=== PATIENT | male | born 1955 | race Caucasian/White ===

== ENCOUNTER 2019-05-15 18:26 | Inpatient (IN) | payer OTHER ==
[~2019-05-15] VITALS: Ht 175.3 cm; Wt 70.3 kg
[2019-05-15 18:56] VITALS: Ht 175.3 cm; Wt 70.3 kg
--- NOTE | 2019-05-15 19:35 | NUR ---
REPORT GIVEN TO SALAZAR MENA. OPPORTUNITY GIVEN TO ASK QUESTIONS. PT'S CARE COMPLETED BY THIS RN AT THIS TIME.
[2019-05-15] MEDS ORDERED: BASAGLAR K100 UNIT/1 SQ (19:46)
[2019-05-15] MEDS ORDERED: ENALAPRIL MALE2.5 MG PO (19:47)
[2019-05-15] MEDS ORDERED: NATURE'S BLEND F1 MG PO (19:47)
[2019-05-15 19:50] LABS: BASOPHIL % 0.3 % (0-2)
[2019-05-15] MEDS ORDERED: GLU850 PO (19:50)
[2019-05-15] MEDS ORDERED: HUMALOG100 UNIT/1 SQ (19:50)
[2019-05-15] MEDS ORDERED: LACTULOSE10 GM/152 PO (19:50)
[2019-05-15] MEDS ORDERED: PROTONIX20 MG PO (19:51)
[2019-05-15] MEDS ORDERED: RESTORIL15 MG PO (19:52)
[2019-05-15] MEDS ORDERED: THI100 PO (19:52)
[2019-05-15 19:53] LABS: PLATELET COUNT 125 x10^3mcL (130-400); RED CELL DISTRIBUTION WIDTH 17.5 % (11.5-14.5)
[2019-05-15] MEDS ORDERED: KLOR-CON 1010 MEQ PO (19:53)
[2019-05-15] MEDS ORDERED: XIFAXAN550 M1 PO (19:53)
[2019-05-15] MEDS ORDERED: SIMVASTATIN20 M1 PO (19:54)
[2019-05-15 19:59] LABS: CALCIUM 8.4 mg/dL (8.5-10.1); CARBON DIOXIDE 23.6 mmol/L (21-32); CHLORIDE SERUM 105 mmol/L (98-107); GFR1 > 60 mL/min; GLUCOSE SERUM 165 mg/dL (74-106); POTASSIUM SERUM 4.5 mmol/L (3.5-5.1); SODIUM SERUM 140 mmol/L (136-145)
[2019-05-15 20:05] LABS: ALBUMIN 2.4 g/dL (3.4-5.0); ALKALINE PHOSPHATASE 97 U/L (46-116); ALT/SGPT 20 U/L (16-63); AST/SGOT 16 U/L (15-37); BILIRUBIN TOTAL 6.43 mg/dL (0.20-1.00); MAGNESIUM 1.6 mg/dL (1.8-2.4)
--- NOTE | 2019-05-15 20:14 | NUR ---
PT STILL CONFUSSED AND AT TIMES UNCOOPERATIVE. DAUGHTER AT BEDISDE. VITAL SIGNS STABLE. RESPIRATIONS EVEN AND UNLABORED. NO ACUTE DISTRESS NOTED.
[2019-05-15 20:39] LABS: TOTAL PROTEIN, SERUM 6.3 g/dL (6.4-8.2)
--- NOTE | 2019-05-15 21:42 | NUR ---
REPORT GIVEN TO [facility] ON [facility] FOR CONTINUATION OF CARE.
[2019-05-15 21:53] LABS: CHOLESTEROL/HDL RATIO 2.1
[2019-05-15 22:18] VITALS: BP 81/60
--- NOTE | 2019-05-15 22:22 | NUR ---
RECEIVED PT FROM ED VIA PHANI. ORIENTED PT AND FAMILY TO ROOM AND SURROUNDINGS. IV NOTED TO LAC PATENT NAD INTACT .TELE 8 PLACED ON PT READING NSR. INSTRUCTED PT ON THE USE OF CALL LIGHT FOR ASSISTANCE. ENDORSED PT TO PRIMARY NURSE AGUSTÍN
--- NOTE | 2019-05-15 22:25 | NUR ---
PT RECEIVED FROM RESOURCE NURSE. PT A/O X1, ABLE TO ANSWER YES OR NO QUESTIONS, PT CONFUSED AT THIS TIME. FAMILY AT BEDSIDE. PULSES PALPABLE, NO EDEMA PRESENT. BREATHING IS EVEN AND UNLABORED ON RA, NO RESP DISTRESS NOTED. ABD SOFT AND NONDISTENDED, NO N/V PRESENT. VOIDS FREELY, URINAL AT BEDSIDE. GENERALIZED WEAKNESS, BED ALARM ON. SKIN IS WARM AND DRY, INTACT. PT DENIES HAVING PAIN AT THIS TIME. IV TO LAC, PATENT AND INTACT, SITE WNL. NO ACUTE DISTRESS NOTED. ORIENTED PT TO ROOM AND CALL LIGHT. BED IN LOWEST SETTING, SIDE RAILS UP X3, BED ALARM ON, CALL LIGHT WITHIN REACH. WILL CONT TO MONITOR.
--- NOTE | 2019-05-15 22:40 | NUR ---
AMMONIA-127, LACTULOSE GIVEN ORDERED. PT ALSO C/O NAUSEA, EMESIS BAG PROVIDED, PRN ZOFRAN GIVEN ORDERED. NO ACUTE DISTRESS NOTED. WILL CONT TO MONITOR.
--- NOTE | 2019-05-16 01:27 | NUR ---
CRITICAL LAB: LACTIC ACID-3.2, TRENDING DOWN. DR JEFFERSON MADE AWARE.
--- NOTE | 2019-05-16 01:37 | NUR ---
MAG-1.6, DR JEFFERSON MADE AWARE.
[2019-05-16 05:29] VITALS: BP 123/62
--- NOTE | 2019-05-16 05:45 | NUR ---
DR JEFFERSON MADE AWARE OF DIET ORDER, AWAITING ORDERS AT THIS TIME.
--- NOTE | 2019-05-16 06:23 | NUR ---
PT SLEPT WELL THROUGHOUT THE EVENING. PT REMAINS CONFUSED. BREATHING IS EVEN AND UNLABORED, NO RESP DISTRESS NOTED. PT DENIES HAVING ANY PAIN AT THIS TIME. NO ACUTE CHANGES ENCOUNTERED DURING SHIFT. ALL NEEDS MET AND ANTICIPATED. IVF INFUSING WELL, SITE WNL. BED ALARM ON. CALL LIGHT WITHIN REACH. WILL ENDORSE CARE TO AM NURSE.
[2019-05-16 06:24] LABS: BASOPHIL % 0.4 % (0-2)
[2019-05-16 06:32] LABS: PLATELET COUNT 111 x10^3mcL (130-400); RED CELL DISTRIBUTION WIDTH 17.7 % (11.5-14.5)
[2019-05-16 06:46] LABS: CALCIUM 8.3 mg/dL (8.5-10.1); CARBON DIOXIDE 19.5 mmol/L (21-32); CHLORIDE SERUM 108 mmol/L (98-107); CREATININE SERUM 0.8 mg/dL (0.7-1.3); GFR1 > 60 mL/min; GLUCOSE SERUM 177 mg/dL (74-106); POTASSIUM SERUM 4.2 mmol/L (3.5-5.1); SODIUM SERUM 139 mmol/L (136-145)
--- NOTE | 2019-05-16 07:00 | NUR ---
RECEIVED BEDSIDE REPORT FROM [employer] NURSE AT THIS TIME. PATIENT RESTING COMFORTABLY IN BED. NO APPARENT DISTRESS OR DISCOMFORT NOTED. PATIENT IS A/O X1 (SELF). BREATHING EVEN AND UNLABORED. NO RESPIRATORY DISTRESS OR DISCOMFORT NOTED. PATIENT DENIES SHORTNESS OF BREATH. NO INDICATION OF CHEST PAIN/PRESSURE. IV PATENT AND INTACT AND INFUSING NS @100ML/HR. ALL QUESTIONS AND CONCERNS ADDRESSED. ALL NEEDS ATTENDED TO. WILL CONTINUE TO MONITOR
--- NOTE | 2019-05-16 07:18 | NUR ---
PT IN NO ACUTE DISTRESSED. CONTINUITY OF CARE ENDORSED TO JOSHUA MENA. ALL QUESTIONS AND CONCERNS ADDRESSED.
--- NOTE | 2019-05-16 10:36 | NUR ---
PATIENT RECEIVED MORNING MEDICATIONS. PATIENT TOLERATED MEDICATIONS WELL. NO APPARENT ADVERSE EFFECTS NOTED. ALL NEEDS ATTENDED TO. WILL CONTINUE TO MONITOR
--- NOTE | 2019-05-16 11:29 | NUR ---
DR BASS AT BEDSIDE REVIEWING POC WITH PATIENT AND PATIENT FAMILY AT THIS TIME. ALL QUESTIONS AND CONCERNS ADDRESSED. ALL NEEDS ATTENDED TO. WILL CONTINUE TO MONITOR
--- NOTE | 2019-05-16 13:28 | NUR ---
PATIENT BLOOD SUGAR 184. 3 UNITS OF REGULAR INSULIN REQUIRED (SEE EMAR). ALL NEEDS ATTENDED TO. WILL CONTINUE TO MONITOR
[2019-05-16 13:45] VITALS: BP 116/76
--- NOTE | 2019-05-16 14:00 | NUR ---
PAGED DR BASS TO REPORT PATIENT HAS HAD NO URINE OUTPUT ALL SHIFT. AWAITING CALL BACK AT THIS TIME. WILL CONTINUE TO MONITOR
--- NOTE | 2019-05-16 16:49 | NUR ---
CALLED RESIDENT PHONE AT THIS TIME. SPOKE TO DR DUMONT TO REPORT PATIENT HAS HAD NO URINE OUTPUT THIS SHIFT. PATIENT ON 100ML/HR AND HAS BEEN DRINKING FLUIDS ALL SHIFT. PER DR DUMONT HE WILL NOTIFY DR BASS. ALL NEEDS ATTENDED TO. WILL CONTINUE TO MONITOR
[2019-05-16 17:15] VITALS: BP 90/55
--- NOTE | 2019-05-16 17:58 | NUR ---
PAGED DR CHAUDHARY, WHO IS COVERING FOR DR BASS, TO REPORT PATIENT IS POSITIVE MRSA NARES AT THIS TIME. AWAITING CALL BACK AT THIS TIME.WILL CONTINUE TO MONITOR.
--- NOTE | 2019-05-16 19:05 | NUR ---
REPORT RECEIVED FROM DAY SHIFT RN. PATIENT WAS SEEN AND IS RESTING COMFORTABLY IN BED. NO DISTRESS NOTED. BREATHING EVEN AND UNLABORED. NO SOB OR RESP DISTRESS. DENIES CHEST PAIN/PRESSURE. TELE #8. A/OX1 TO SELF ONLY. SEIZURE PRECAUTIONS IN PLACE. NO C/O PAIN. IV TO THE LAC INFUSING NS WELL AT 100ML/HR. PATENT AND INTACT. NO REDNESS OR SWELLING NOTED. COMFORT AND SAFETY MEASURES IN PLACE. BED IS LOCKED AND IN THE LOWEST POSITION. SIDE RAILS UP X2. CALL LIGHT IS WITHIN REACH. WILL CONTINUE TO MONITOR.
--- NOTE | 2019-05-16 19:15 | NUR ---
NOTIFIED DR JEFFERSON ABOUT (+) MRSA IN THE NARES. AWAITING NEW ORDERS. CONTACT PRECAUTIONS ARE IN PLACE.
--- NOTE | 2019-05-16 19:39 | NUR ---
PATIENT RESTING COMFORTABLY IN BED AT THIS TIME. NO APPARENT DISTRESS OR DISCOMFORT NOTED. IV PATENT AND INTACT. ALL QUESTIONS AND CONCERNS ADDRESSED. ALL NEEDS ATTENDED TO. SAFETY PRECAUTIONS MAINTAINED. ENDORSED ALL CARE TO DRILLING MANAGER NURSE. DR GONZALEZ PATIENT POSITIVE MRSA NARES
[2019-05-16 20:17] VITALS: BP 123/69
--- NOTE | 2019-05-17 00:45 | NUR ---
RESTING IN BED COMFORTABLY. NO DISTRESS NOTED. DENIES PAIN. BREATHING EVEN AND UNLABORED ON ROOM AIR. NO SOB NOTED. IV TO THE LAC INFUSING WELL. PATENT AND INTACT. SAFETY MEASURSES IN PLACE. CALL LIGHT IS WITHIN REACH. WILL CONTINUE TO MONITOR.
--- NOTE | 2019-05-17 06:02 | NUR ---
RESTED IN LONG INTERVALS THROUGHOUT THE NIGHT. NO ACUTE CHANGES NOTED. A/OX1 TO SELF, CONFUSED. NO DISTRESS NOTED. DENIES CHEST PAIN/PRESSURE. NO C/O PAIN THROUGHOUT THE NIGHT. BREATHING EVEN AND UNLABORED ON ROOM AIR. NO SOB OR RESP DISTRESS NOTED. IV TO THE LAC INFUSING WELL. PATENT AND INTACT. NO REDNESS OR SWELLING NOTED. SEIZURE PRECAUTIONS IN PLACE. SAFETY MEASURES IN PLACE. ALL NEEDS AND CONCERNS ADDRESSED. NO BM NOTED ON THE SHIFT. LACTULOSE GIVEN X2. CALL LIGHT IS WITHIN REACH. WILL ENDORSE CARE TO DAY SHIFT RN.
[2019-05-17 06:17] VITALS: BP 123/72
--- NOTE | 2019-05-17 06:30 | NUR ---
TELE MONITOR CALLED REPORTED PATIENT WAS OFF TELE. WENT TO CHECK ON PATIENT. PATIENT REMOVED TELE LEADS AND GOWN. URINE FOUND ON THE FLOOR IN FRONT OF BATHROOM. LEADS REAPPLIED. EDUCATED PATIENT TO NOT REMOVED GOWN AND LEADS. IV TO LAC INTACT. PATENT AND INFUSING WELL. PATIENT CLEANED AND CHANGED BY GABE PIMENTEL. PATIENT IS CONFUSED. SAFETY MEASURES IN PLACE. WILL ENDORSE CARE TO DAY SHIFT RN.
[2019-05-17 06:53] LABS: BASOPHIL % 0.6 % (0-2)
[2019-05-17 07:07] LABS: PLATELET COUNT 99 x10^3mcL (130-400); RED CELL DISTRIBUTION WIDTH 17.4 % (11.5-14.5)
--- NOTE | 2019-05-17 07:35 | NUR ---
RECEIVED PT IN BED. ASSESSED AND DOCUMENTED. DENIES PAIN THIS TIME. SAFTEY PRECAUTIONS ARE IN PLACE. WILL MONITOR.
[2019-05-17 07:42] LABS: CALCIUM 7.6 mg/dL (8.5-10.1); CARBON DIOXIDE 21.6 mmol/L (21-32); CHLORIDE SERUM 110 mmol/L (98-107); CREATININE SERUM 0.8 mg/dL (0.7-1.3); GFR1 > 60 mL/min; GLUCOSE SERUM 135 mg/dL (74-106); MAGNESIUM 1.6 mg/dL (1.8-2.4); PHOSPHOROUS 3.6 mg/dL (2.5-4.9); POTASSIUM SERUM 3.7 mmol/L (3.5-5.1); SODIUM SERUM 142 mmol/L (136-145)
[2019-05-17 10:05] VITALS: BP 131/81
--- NOTE | 2019-05-17 13:30 | NUR ---
PT RESTING IN BED COMFORTABLY. DENIES ANY PAIN. STABLE. PT RESPOSITIONING SELF.
[2019-05-17 13:42] VITALS: BP 130/78
--- NOTE | 2019-05-17 14:09 | NUR ---
Initial Nutrition Assessment: 218T/A [place] ERAZO IA HR Dx: Hepatic encephalopathy PMHx: Alcoholic cirrhosis, DM, Hepatitis C and hepatic encephalopathy PSHx: Hernia Repair, Carpal tunnel release Labs: BG 135H, ammonia 59H, MG 1.6L Meds: Colace, D 50%, folic acid, humulin, Tylenol, vitamin B-1, zofran Diet: [facility] PO Intake: (05/16) breakfast 40%, lunch 50%, Ht: 175.26 cm (69") Wt: 70.3 kg (155#) BMI: 22.9 kg/m2 Bed scale: 70.2 kg IBW: 160# (72.7 kg) %IBW: 96 UBW: unable to access as pt was sleeping Age: 64/M Food Allergies: NKFA Skin: intact Gagan: 17 Edema: none GI: on lactulose Last BM: 05/15 Per H&P, Pt is a 64 YO male with PMH of Alcoholic cirrhosis, DM, Hepatitis C and hepatic encephalopathy brought in to the ED from [facility] for altered mental status, Patient was admitted 3 weeks ago at [facility] for upper GI bleeding and elevated ammonia and was discharged after one week but he wasn't back to his baseline so his daughters decided to place him in [facility]. His condition improved initially in [facility] but then deteriorated 3 days ago, he became more altered and stopped eating and was verbally abusive and combative so his daughters decided to send him to the ED today. RDN Visit (05/16): Patient was sleeping with no family member at bedside. Per RN Amy, pt's PO has improved a little this morning. Patient does not have any N/V/D/C. Patient's last BM was on 05/15/19. Problem with: N/V/D/C: none at this time per RN Problems with: Chewing/Swallowing: none Current appetite: fair Recent wt change: unable to access %wt change: unable to access Vitamin/Supplement use: unable to access Special diet at home: unable to access Physical activity: unable to access Nutrition education given: not possible at this time as patient was sleeping. Will be attempted during a f/u visit. Food-drug interactions: Colace- high fiber w/1560-4384 ml fluids Education given: n/a Estimated Nutritional Needs Based on current body weight 70.3 kg Energy: 5430-7892 kcal/d (25-30 kcal/kg) Protein: 56-70 g/d (0.8-1.0 g/kg) - hepatic encephalopathy Fluid: 0092-4848 ml/d (1 ml/kcal) or per doctor Nutrition Diagnosis 1. Inadequate oral intake related to poor appetite as evidenced by documented PO >75% 2. Impaired nutrient utilization related to hepatic encephalopathy as evidenced by ammonia: 59. Intervention 1. Recommend continuing CCHO diet. 2. Recommend Glucerna BID. Discussed recommendations with Dr. Kebdee. Monitor/Evaluate Goal: PO intake at least 75% of estimated needs Monitor: PO intake, Labs, GI function F/U in 3-5 days as moderate risk 05/20-10
--- NOTE | 2019-05-17 14:10 | NUR ---
1. [facility]. 2. Recommend Glucerna BID. Discussed recommendations with Dr. Kebede.
[2019-05-17 18:07] LABS: UA SPECIFIC GRAVITY 1.015 (1.005-1.035); microscopic required? YES; urine erythrocyte 2+ (NEGATIVE)
[2019-05-17 18:11] VITALS: BP 110/64
--- NOTE | 2019-05-17 19:05 | NUR ---
PT RESTING IN BED COMFORTABLY. DENIES ANY PAIN. STABLE. GAVE REPORT TO SINGLE NEEDLE TUFTING MACHINE OPERATOR NURSE.
--- NOTE | 2019-05-17 19:10 | NUR ---
REPORT RECEIVED FROM DAY SHIFT RN. PATIENT WAS SEEN AND IS RESTING COMFORTABLY IN BED. NO DISTRESS NOTED. BREATHING EVEN AND UNLABORED ON ROOM AIR. NO SOB OR RESP DISTRESS NOTED. DENIES CHEST PAIN/PRESSURE. NO C/O PAIN. IV TO THE LFA, 20G, INFUSING NS WELL AT 100ML/HR. PATENT AND INTACT. NO REDNESS OR SWELLING NOTED. CONFUSED. A/OX1. SEIZURE PRECAUTIONS IN PLACE. COMFORT AND SAFETY MEASURES IN PLACE. BED IS LOCKED AND IN THE LOWEST POSITION. SIDE RAILS UP X2. EDUCATED PATIENT TO CALL FOR ASSISTANCE AND TO NOT GET OOB. CALL LIGHT IS WITHIN REACH. WILL CONTINUE TO MONITOR.
[2019-05-17 19:43] LABS: AMPHETAMINE QUAL UR NONE DETECTED (See below)
[2019-05-17 20:43] VITALS: BP 109/64
--- NOTE | 2019-05-17 21:15 | NUR ---
PATIENT HAD AN EPISODE OF URINARY INCONTINENCE. LINENS CHANGES AND PATIENT CLEANED WITH SABENA ANALYTICAL LAB TECHNICIAN. PATIENT TOLERATED WELL. NO SIGNS OF DISTRESS NOTED. DENIES PAIN. BREATHING EVEN AND UNLABORED. PATIENT MADE COMOFORTABLE IN MADE AND REPOSITIONED TO COMFORT. SAFETY MEASURES IN PLACE. CALL LIGHT IS WITHIN REACH. SEIZURE PRECAUTIONS IN PLACE. GAVE SANDWICH PER REQUEST. WILL CONTINUE TO MONITOR.
--- NOTE | 2019-05-17 21:15 | NUR ---
PATIENT HAD AN EPISODE OF URINARY INCONTINENCE. LINENS CHANGES AND PATIENT CLEANED WITH SABENA DRAFTER CARTOGRAPHIC. PATIENT TOLERATED WELL. NO SIGNS OF DISTRESS NOTED. DENIES PAIN. BREATHING EVEN AND UNLABORED. PATIENT MADE COMFORTABLE IN BED AND REPOSITIONED TO COMFORT. SAFETY MEASURES IN PLACE. CALL LIGHT IS WITHIN REACH. SEIZURE PRECAUTIONS IN PLACE. GAVE SANDWICH PER REQUEST. WILL CONTINUE TO MONITOR.
--- NOTE | 2019-05-18 01:50 | NUR ---
RESTING IN BED WITH EYES CLOSED. NO DISTRESS NOTED. EVEN AND SYMMETRIC CHEST RISE AND FALL. BREATHING EVEN AND UNLABORED ON ROOM AIR. NO SOB OR RESP DISTRESS NOTED. NO S/S OF PAIN NOTED. SEIZURE PRECAUTIONS IN PLACE. SAFETY MEASURES IN PLACE. CALL LIGHT IS WITHIN REACH. WILL CONTINUE TO MONITOR.
[2019-05-18 05:51] VITALS: BP 122/66
--- NOTE | 2019-05-18 06:11 | NUR ---
RESTED IN LONG INTERVALS THROUGHOUT THE NIGHT. NO ACUTE CHANGES NOTED. CONFUSED. NO DISTRESS NOTED. BREATHING EVEN AND UNLABORED ON ROOM AIR. NO SOB OR RESP DISTRESS NOTED. NO C/O PAIN THROUGHOUT THE NIGHT. DENIES CHEST PAIN. LACTULOSE GIVEN X2. NO BM NOTED ON THE SHIFT. IV TO THE LFA INFUSING NS WELL AT 100ML/HR. PATENT AND INTACT. NO REDNESS OR SWELLING NOTED. DRESSING, CDI. SEIZURE PRECAUTIONS IN PLACE. NO SEIZURES NOTED. ALL NEEDS AND CONCERNS ADDRESSED. SAFETY MEASURES IN PLACE. CALL LIGHT IS WITHIN REACH. WILL ENDORSE CARE TO DAY SHIFT RN.
[2019-05-18 06:30] LABS: BASOPHIL % 0.7 % (0-2)
[2019-05-18 06:36] LABS: CALCIUM 7.7 mg/dL (8.5-10.1); CHLORIDE SERUM 110 mmol/L (98-107); CREATININE SERUM 0.8 mg/dL (0.7-1.3); GFR1 > 60 mL/min; GLUCOSE SERUM 177 mg/dL (74-106); MAGNESIUM 1.6 mg/dL (1.8-2.4); PHOSPHOROUS 3.5 mg/dL (2.5-4.9); POTASSIUM SERUM 3.7 mmol/L (3.5-5.1); SODIUM SERUM 141 mmol/L (136-145)
[2019-05-18 06:54] LABS: PLATELET COUNT 95 x10^3mcL (130-400); RED CELL DISTRIBUTION WIDTH 17.4 % (11.5-14.5)
[2019-05-18 07:24] LABS: CARBON DIOXIDE 24.8 mmol/L (21-32)
--- NOTE | 2019-05-18 08:10 | NUR ---
RECEIVED PATIENT FROM TRINA MANJARREZ, PATIENT OBSERVED STANDING IN ROOM, USING REST ROOM. PATIENT HAS NO COMPLAINTS OF PAIN, HOWEVER CONFUSION ABOUT PLACE AND SITUATION. WILL CONTINUE TO MONITOR AND AWAIT RESIDENTS FOR ROUNDS. CALL LIGHT IN REACH, BED ALARM ON.
[2019-05-18 08:37] VITALS: BP 97/62
[2019-05-18 12:24] VITALS: BP 99/49
--- NOTE | 2019-05-18 17:18 | NUR ---
SPOKE W PATIENT FAMILY AND DAUGTHERS ABOUT PLAN OF CARE.
[2019-05-18 17:29] VITALS: BP 128/74
--- NOTE | 2019-05-18 18:52 | NUR ---
PATIENT SEATED IN BED AT THIS TIME, NO COMPLAINTS OF PAIN. PATIENT IMPROVED ORIENTATION. WILL ENDORSE TO ONCOMING NURSE. CALL LIGHT IN REACH.
[2019-05-18 20:12] VITALS: BP 126/67
--- NOTE | 2019-05-18 20:24 | NUR ---
PT RECIEVED AAO REG RESP NO SOB V/S STABLE,KEPT CLEAN AND DRY TO TOUCH,IV INFUSING WELL WITH THE SITE PATENTG AND INTACT,SIDE RAILS ALL PADDED AND HOB,P ON TELE MONITOR AND IN NSR NO ECTOPY OR CHEST PAIN AT THIS TIME,CALL LIGHT EASY REACHED AND WILL CONTINUE TO MONITOR
--- NOTE | 2019-05-18 23:43 | NUR ---
PT RESTING AT THIS TIME,WILL CONTINUE TO MONITOR.
[2019-05-19 05:17] VITALS: BP 128/77
[2019-05-19 06:21] LABS: CALCIUM 7.9 mg/dL (8.5-10.1); CARBON DIOXIDE 25.8 mmol/L (21-32); CHLORIDE SERUM 106 mmol/L (98-107); CREATININE SERUM 0.8 mg/dL (0.7-1.3); GFR1 > 60 mL/min; GLUCOSE SERUM 176 mg/dL (74-106); MAGNESIUM 1.7 mg/dL (1.8-2.4); PHOSPHOROUS 3.3 mg/dL (2.5-4.9); POTASSIUM SERUM 4.1 mmol/L (3.5-5.1); SODIUM SERUM 139 mmol/L (136-145)
--- NOTE | 2019-05-19 06:24 | NUR ---
PT HAD A RESTING NIGHT NO CHANHE AT THIS TIME AND WILL CONTINUE TO MONITOR.
--- NOTE | 2019-05-19 07:37 | NUR ---
A+OX3, FORGETFUL AT TIMES, SZ PRECAUTIONS, TELE 8, PULSES MODERATE AND EQUAL DEBORAH, NO EDEMA NOTED, LUNG SOUNDS CTA, TOELRATING RA, BOWEL SOUNDS ACTIVE, VOIDING FREELY, INCONTINENT AT TIMES, ORANGE URINE, GENERALIZED WEAKNESS, SKIN INTACT, IV IN LFA WITH NS @ 100 ML/HR, SITE WNL.
[2019-05-19 07:38] VITALS: BP 128/79
[2019-05-19 08:14] LABS: BASOPHIL % 0.3 % (0-2)
[2019-05-19 08:16] LABS: PLATELET COUNT 99 x10^3mcL (130-400)
--- NOTE | 2019-05-19 09:02 | NUR ---
PT RESTING IN BED, NO RESPIRATORY DISTRESS NOTED, DENIES PAIN, CALL LIGHT WITHIN REACH. ASSISTED PT TO TELEPHONE DAUGHTER ELLEN.
[2019-05-19 10:09] VITALS: BP 136/92
--- NOTE | 2019-05-19 11:49 | NUR ---
PT RESTING IN BED, NO RESPIRATORY DISTRESS NOTED, DENIES PAIN, CALL LIGHT WITHIN REACH.
[2019-05-19] MEDS ORDERED: LACTULOSE10 GM/152 PO (12:11)
[2019-05-19 12:16] VITALS: BP 135/90
[2019-05-19] MEDS ORDERED: BACO TOP (12:28)
[2019-05-19] MEDS ORDERED: HIBICLENS118 ML TOP (12:30)
--- NOTE | 2019-05-19 12:38 | NUR ---
REPORT GIVEN TO ONELIA MENA @ [facility].
--- NOTE | 2019-05-19 13:03 | NUR ---
PT PLACED IN TRANSFER GOWN, DAUGHTER ELLEN NOTFIED THAT PT READY FOR DC TO [facility], DAUGHTER STATES SHE IS ON HER WAY TO [employer] CAR PT TO TRANSFER HIM TO [facility], IV REMOVED WITH CATHETER INTACT, GAUZE AND TAPE PLACED ON SITE.
[2019-05-19 13:26] VITALS: BP 126/73
--- NOTE | 2019-05-19 13:38 | NUR ---
DC INSTRUCTIONS GIVEN TO DAUGHTER ELLEN, ELLEN VERBALIZED UNDERSTANDING, PT PLACED IN OWN CLOTHES AND ASSISTED TO WC. PER DAUGHTER ELLEN, SHE WILL BE TRANSPORTING PT DIRECTLY TO [facility]. PT OFF UNIT VIA WC WITH ALL BELONGINGS ESCORTED BY DAUGHTER AND THEATRICAL AGENT.
--- NOTE | 2019-05-19 13:41 | NUR ---
TELE RETURNED BY DARRION MENA TO [facility]
== END 2019-05-19 13:35 | DRG 432 ==
LOC: ED 18:26 → DU 21:00
PROVIDERS: Emergency Medicine; ADMIT Internal Medicine
DX: K70.40 Alcoholic hepatic failure without coma (principal); E43 Unspecified severe protein-calorie malnutrition; K70.30 Alcoholic cirrhosis of liver without ascites; E11.65 Type 2 diabetes mellitus with hyperglycemia; E80.6 Other disorders of bilirubin metabolism; E83.42 Hypomagnesemia; F10.21 Alcohol dependence, in remission; Z68.20 Body mass index [BMI] 20.0-20.9, adult; Z79.84 Long term (current) use of oral hypoglycemic drugs
CPT/HCPCS: 82962; 83880; 97116-GP; 97530-GP; C9113; G0378; G0480; J1815; J2405; J3475; J7030; Q0092

== ENCOUNTER 2019-06-01 13:45 | Inpatient (IN) | payer OTHER ==
[~2019-06-01] VITALS: Ht 182.9 cm; Wt 86.2 kg
[~2019-06-01 13:45] MED LIST: BACO TOP; BASAGLAR K100 UNIT/1 SQ; ENALAPRIL MALE2.5 MG PO; GLU850 PO; HIBICLENS118 ML TOP; HUMALOG100 UNIT/1 SQ; KLOR-CON 1010 MEQ PO; LACTULOSE10 GM/152 PO; NATURE'S BLEND F1 MG PO; PROTONIX20 MG PO; RESTORIL15 MG PO; SIMVASTATIN20 M1 PO; THI100 PO; XIFAXAN550 M1 PO
[2019-06-01 16:07] LABS: BASOPHIL % 0.5 % (0-2)
[2019-06-01 16:09] LABS: PLATELET COUNT 123 x10^3mcL (130-400); RED CELL DISTRIBUTION WIDTH 17.7 % (11.5-14.5)
[2019-06-01 16:32] LABS: CALCIUM 8.2 mg/dL (8.5-10.1); CARBON DIOXIDE 20.4 mmol/L (21-32); CHLORIDE SERUM 107 mmol/L (98-107); CREATININE SERUM 0.9 mg/dL (0.7-1.3); GFR1 > 60 mL/min; GLUCOSE SERUM 164 mg/dL (74-106); POTASSIUM SERUM 3.6 mmol/L (3.5-5.1); SODIUM SERUM 140 mmol/L (136-145)
[2019-06-01 16:45] LABS: ALBUMIN 2.2 g/dL (3.4-5.0); ALKALINE PHOSPHATASE 90 U/L (46-116); ALT/SGPT 22 U/L (16-63); AST/SGOT 24 U/L (15-37); BILIRUBIN TOTAL 6.8 mg/dL (0.20-1.00); CHOLESTEROL 123 mg/dL (<200)
[2019-06-01] MEDS ORDERED: MOM PO (17:28)
[2019-06-01] MEDS ORDERED: DULCOLAX10 M1 RC (17:31)
[2019-06-01 18:59] VITALS: BP 126/72
[2019-06-01 19:30] VITALS: BP 121/66
[2019-06-02 06:11] VITALS: BP 137/70
[2019-06-02 06:46] LABS: CALCIUM 7.7 mg/dL (8.5-10.1); CARBON DIOXIDE 22.6 mmol/L (21-32); CHLORIDE SERUM 109 mmol/L (98-107); CREATININE SERUM 0.9 mg/dL (0.7-1.3); GFR1 > 60 mL/min; GLUCOSE SERUM 199 mg/dL (74-106); MAGNESIUM 1.4 mg/dL (1.8-2.4); POTASSIUM SERUM 3.6 mmol/L (3.5-5.1); SODIUM SERUM 142 mmol/L (136-145)
[2019-06-02 07:25] LABS: BASOPHIL % 0.5 % (0-2)
[2019-06-02 07:27] LABS: PLATELET COUNT 108 x10^3mcL (130-400); RED CELL DISTRIBUTION WIDTH 17.8 % (11.5-14.5)
[2019-06-02 09:43] VITALS: BP 124/74
[2019-06-02 17:12] VITALS: BP 131/73
[2019-06-02 19:55] VITALS: BP 127/66
[2019-06-03 06:02] VITALS: BP 128/73
[2019-06-03 07:04] LABS: CALCIUM 7.2 mg/dL (8.5-10.1); CHLORIDE SERUM 109 mmol/L (98-107); CREATININE SERUM 0.8 mg/dL (0.7-1.3); GFR1 > 60 mL/min; GLUCOSE SERUM 222 mg/dL (74-106); MAGNESIUM 1.6 mg/dL (1.8-2.4); POTASSIUM SERUM 3.3 mmol/L (3.5-5.1); SODIUM SERUM 140 mmol/L (136-145)
[2019-06-03 07:29] LABS: BASOPHIL % 0.8 % (0-2); PLATELET COUNT 97 x10^3mcL (130-400); RED CELL DISTRIBUTION WIDTH 17.7 % (11.5-14.5)
[2019-06-03 08:23] VITALS: BP 123/72
[2019-06-03 20:44] VITALS: BP 121/63
[2019-06-04 05:52] VITALS: BP 132/70
[2019-06-04 09:06] VITALS: BP 128/70
[2019-06-04 13:12] VITALS: Ht 182.9 cm; Wt 86.2 kg
[2019-06-04 17:44] VITALS: BP 117/70
[2019-06-04 20:46] VITALS: BP 124/73
[2019-06-05 05:32] VITALS: BP 132/70
[2019-06-05 09:49] VITALS: BP 131/76
[2019-06-05 11:23] LABS: BASOPHIL % 0.4 % (0-2)
[2019-06-05 11:30] LABS: CALCIUM 8.1 mg/dL (8.5-10.1); CARBON DIOXIDE 28.6 mmol/L (21-32); CHLORIDE SERUM 106 mmol/L (98-107); CREATININE SERUM 0.6 mg/dL (0.7-1.3); GFR1 > 60 mL/min; GLUCOSE SERUM 193 mg/dL (74-106); POTASSIUM SERUM 3.9 mmol/L (3.5-5.1); SODIUM SERUM 140 mmol/L (136-145)
[2019-06-05 11:33] LABS: PLATELET COUNT 90 x10^3mcL (130-400); RED CELL DISTRIBUTION WIDTH 18.1 % (11.5-14.5)
[2019-06-05 12:31] LABS: burr cell (echinocyte) 1+; rbc morphology (normal/abnorm) ABNORMAL (NORMAL)
[2019-06-05 17:02] VITALS: BP 121/63
[2019-06-05 20:40] VITALS: BP 123/69
[2019-06-06 06:42] LABS: BASOPHIL % 0.9 % (0-2)
[2019-06-06 06:55] LABS: PLATELET COUNT 104 x10^3mcL (130-400); RED CELL DISTRIBUTION WIDTH 17.7 % (11.5-14.5)
[2019-06-06 07:03] LABS: CALCIUM 7.7 mg/dL (8.5-10.1); CARBON DIOXIDE 25.5 mmol/L (21-32); CHLORIDE SERUM 109 mmol/L (98-107); CREATININE SERUM 0.7 mg/dL (0.7-1.3); GFR1 > 60 mL/min; GLUCOSE SERUM 110 mg/dL (74-106); POTASSIUM SERUM 3.9 mmol/L (3.5-5.1); SODIUM SERUM 143 mmol/L (136-145)
[2019-06-06 08:18] VITALS: BP 119/66
[2019-06-06 16:25] VITALS: BP 111/67
[2019-06-06 19:25] VITALS: BP 120/72
[2019-06-07 05:29] VITALS: BP 106/68
[2019-06-07 06:55] LABS: BASOPHIL % 1.1 % (0-2)
[2019-06-07 07:01] LABS: CALCIUM 8.4 mg/dL (8.5-10.1); CARBON DIOXIDE 25.5 mmol/L (21-32); CHLORIDE SERUM 108 mmol/L (98-107); CREATININE SERUM 0.7 mg/dL (0.7-1.3); GFR1 > 60 mL/min; GLUCOSE SERUM 143 mg/dL (74-106); POTASSIUM SERUM 4.1 mmol/L (3.5-5.1); SODIUM SERUM 142 mmol/L (136-145)
[2019-06-07 07:28] LABS: PLATELET COUNT 102 x10^3mcL (130-400); RED CELL DISTRIBUTION WIDTH 17.6 % (11.5-14.5)
[2019-06-07 09:07] VITALS: BP 115/67
[2019-06-07 13:02] VITALS: BP 115/67
== END 2019-06-07 13:55 | DRG 433 ==
LOC: ED 13:45 → MU 16:52 → DU 16:52 → MU 06-02 05:41
PROVIDERS: Emergency Medicine; General Practice; ADMIT Internal Medicine
DX: K70.30 Alcoholic cirrhosis of liver without ascites (principal); E44.1 Mild protein-calorie malnutrition; K72.90 Hepatic failure, unspecified without coma; E11.9 Type 2 diabetes mellitus without complications; Z68.25 Body mass index [BMI] 25.0-25.9, adult; Z79.84 Long term (current) use of oral hypoglycemic drugs
CPT/HCPCS: 82962; 92526-GN; 92610-GN; 97112-GP; 97116-GP; 97530-GP; G0378; G0480; J3475; J7030; J7042; Q0092